=== PATIENT | male | born 2000 | race Caucasian/White ===

== ENCOUNTER 2024-04-16 15:26 | Outpatient (CLI) | payer OTHER, SELFPAY ==
--- OUTSIDE RECORDS SUMMARY | 2024-04-18 07:41 | XMS_ITS | Referral Summary ---
Author Organization [facility] Address [address] [place] [address] Care Team Providers Care Advertising Strategist Name Role Phone Werner Sewell MD Unavailable [phone] Werner Sewell MD Unavailable [phone] Majo Franco RN Unavailable [phone] Unavailable [phone] Lin Babcock PA-C Primary Care Provider Lynn Funes RD Unavailable [phone] Encounters Date Type Department Care Team Description 04/11/2024 Refill [place] [address] [place] [phone] Werner Sewell MD Medication Refill 03/05/2024 MyC Refill [place] [address] [place] [phone] Werner Sewell MD Refill Request 03/02/2024 Refill M [address] [place] [phone] Werner Sewell MD Medication Refill from Last 3 Months Allergies No known active allergies Medications Medication Sig Dispensed Refills Start Date End Date Status CONTOUR NEXT TEST test stripIndications:Typ e 1 diabetes mellitus without complication (H) USE 1 STRIP TO CHECK GLUCOSE 4 TIMES DAILY OR DIRECTED 100 strip 11 05/31/20 23 Active Insulin Glargine-yfgn 100 UNIT/ML SOPNIndications:Type 1 diabetes mellitus without complication (H) INJECT 24 UNITS SUBCUTANEOUSLY AT BEDTIME 15 mL 5 05/31/20 23 Active blood glucose (NO BRAND SPECIFIED) test stripIndications:Typ e 1 diabetes mellitus with microalbuminuria (H) Use to test blood sugar 4 times daily or as directed. 400 strip 3 11/02/19 24 Active insulin aspart (NOVOLOG FLEXPEN RELION) 100 UNIT/ML penIndications:Type 1 diabetes mellitus without complication (H) INJECT 10 TO 24 UNITS SUBCUTANEOUSLY WITH MEALS AND CORRECTION DOSES DIRECTED, TOTAL DAILY DOSE APPROXIMATELY 60 UNITS 15 mL 3 03/05/20 24 Active insulin pen needle (BD PEN NEEDLE LYN 2ND GEN) 32G X 4 MM miscellaneousIndicat ions: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) USE 4 PEN NEEDLES DAILY OR DIRECTED 400 each 3 04/11/20 24 Active insulin pen needle (32G X 4 MM) 32G X 4 MM miscellaneousIndicat ions: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) Use 4 pen needles daily or as directed. 400 each 3 03/10/20 23 024 Discontinued Active Problems Problem Noted Date Diagnosed Date Diabetes mellitus, type 2 08/10/2022 Social History Tobacco Use Types Packs/Day Years Used Date Smoking Tobacco: Never Smokeless Tobacco: Never Tobacco Cessation:Counseling Given: Not Answered Alcohol Use Standard Drinks/Week Comments Never 0 (1 standard drink = 0.6 oz pur e alcohol) PHQ-2 Answer Date Recorded PHQ-2 Score 0 11/02/2023 Adolescent Education Answer Date Record ed Getting School Help Needed Not on file 06/25 Sex and Gender Information Value Date Recorded Sex Assigned at Not on file Gender Identity Not on file Sexual Orientation Not on file Last Filed Vital Signs Vital Sign Reading Time Taken Comments Blood Pressure 118/71 05/20/2022 11:06 AM CDT Pulse 71 05/20/2022 11:06 AM CDT Temperature - - Respiratory Rate - - Oxygen Saturation 98% 05/20/2022 11:06 AM CDT Inhaled Oxygen Concentration - - Weight 72.3 kg (159 lb 6.4 oz) 05/20/2022 11:06 AM CDT Height - - Body Mass Index - - Plan of Treatment Upcoming Encounters Date Type Department Care Team (Late st Contact Info) Description 07/02/2024 2:00 PM CDT Virtual Visit [facility] [place] [address] [facility] [address] 3rd [place] [address] Selma Garcia PA-C [address] [place] [address] [address] [place] [address] Goals Goal Patient Goal Type Associated Problems Recent Progress Patient-Stated? Author Establish Regular Follow-Ups with PCP Care Plan HbA1C Not In Goal Majo Roman RN Get HbA1C Level in Goal Care Plan HbA1C Not In Goal Majo Roman RN Understand diabetes pathophysiology and disease progression Care Plan Diabetes Self-Management Education Needed to Optimize Self-Care Behaviors Majo Roman RN Healthy Eating - follow a healthy eating pattern for diabetes Care Plan Diabetes Self-Management Education Needed to Optimize Self-Care Behaviors Majo Roman RN Being Active - get regular physical activity, working up to at least 150 minutes per week Care Plan Diabetes Self-Management Education Needed to Optimize Self-Care Behaviors Majo Roman RN Monitoring - monitor glucose and ketones as directed Care Plan Diabetes Self-Management Education Needed to Optimize Self-Care Behaviors Majo Roman RN Taking Medication - patient is consistently taking medications as directed Care Plan Diabetes Self-Management Education Needed to Optimize Self-Care Behaviors Maoj Roman RN Problem Solving - know how to prevent and manage short-term diabetes complications Care Plan Diabetes Self-Management Education Needed to Optimize Self-Care Behaviors Majo Roman RN Reducing Risks - know how to prevent and treat long-term diabetes complications Care Plan Diabetes Self-Management Education Needed to Optimize Self-Care Behaviors Majo Roman RN Healthy Coping - use available resources to cope with the challenges of managing diabetes Care Plan Diabetes Self-Management Education Needed to Optimize Self-Care Behaviors No Majo Franco RN Procedures Procedure Name Priority Date/Time Associated Diagnosis Comments ALBUMIN RANDOM URINE QUANTITATIVE Routine 04/26/2023 10:07 AM CDT 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) BASIC METABOLIC PANEL Routine 04/26/2023 9:37 AM CDT 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) HEMOGLOBIN A1C Routine 04/26/2023 9:37 AM CDT 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) EYE EXAM - HIM SCAN 10/13/2020 1 2:00 AM LENS ASSORTER from Last 3 Months or Most Recently Relevant to Health Maintenance Results * (ABNORMAL) Albumin Random Urine Quantitative with Creat Ratio (04/26/2023 10:07 AM CDT) Creatinine Urine mg/dL 79.6 mg/dL 04/26/2023 10:50 PM CDT [facility] Comment:The reference ranges have not been established in urine creatinine. The results should be integrated into the clinical context for interpretation. Albumin Urine mg/L 22.7 mg/L 2022 10:50 PM CDT [facility] Comment:The reference ranges have not been established in urine albumin. The results should be integrated into the clinical context for interpretation. Albumin Urine mg/g Cr 28.52(H) 0.00 - 17.00 mg/g Cr 04/26/2023 10:50 PM CDT [facility] Comment: Microalbuminuria is defined as an albumin:creatinine ratio of 17 to 299 for males and 25 to 299 for females. A ratio of albumin:creatinine of 300 or higher is indicative of overt proteinuria. Due to biologic variability, positive results should be confirmed by a second, first-morning random or 24-hour timed urine specimen. If there is discrepancy, a third specimen is recommended. When 2 out of 3 results are in the microalbuminuria range, this is evidence for incipient nephropathy and warrants increased efforts at glucose control, blood pressure control, and institution of therapy with an lztpooqfvbi-pzhyvvrdxn-ezdbps (DEBBY) inhibitor (if the patient can tolerate it). ?? Urine URINE SPECIMEN / Unknown Non-blood Collection / Unknown 04/26/2023 10:07 AM CDT 04/26/2023 10:07 AM CDT Werner Sewell MD LAB - URINE ORDERABL ES [facility] Core Lab [address] [facility], [address] [place] [address], [facility] [phone] * (ABNORMAL) Hemoglobin A1c (04/26/2023 9:37 AM CDT) Hemoglobin A1C 8.6(H) 0.0 - 5.6 % 04/26/2023 9:45 AM CDT [facility] Comment: Normal <5.7% Prediabetes 5.7-6.4% ?? Diabetes 6.5% or higher Note: Adopted from ADA consensus guidelines. Blood STRUCTURE OF RIGHT UPPER LIMB / Unknown Venipuncture / Unknown 04/26/2023 9:37 AM CDT 04/26/2023 9:37 AM CDT Werner Sewell MD LAB - BLOOD ORDERABL ES [facility] [address], [address] [place] [address], [facility] [phone] * (ABNORMAL) Basic metabolic panel (04/26/2023 9:37 AM CDT) Sodium 146(H) 136 - 145 mmol/L 04/26/2023 10:42 PM CDT [facility] Potassium 4.4 3.4 - 5.3 mmol/L 04/26/2023 10:42 PM CDT [facility] Chloride 107 98 - 107 mmol/L 04/26/2023 10:42 PM CDT [facility] Carbon Dioxide (CO2) 26 22 - 29 mmol/L 04/26/2023 10:42 PM CDT [facility] Anion Gap 13 7 - 15 mmol/L 04/26/2023 10:42 PM CDT [facility] Urea Nitrogen 15.1 6.0 - 20.0 mg/dL 04/26/2023 10:42 PM CDT [facility] Creatinine 0.87 0.67 - 1.17 mg/dL 04/26/2023 10:42 PM CDT [facility] Calcium 9.4 8.6 - 10.0 mg/dL 04/26/2023 10:42 PM CDT [facility] Glucose 296(H) 70 - 99 mg/dL 04/26/2023 10:42 PM CDT [facility] GFR Estimate >90 >60 mL/min/1.7 3m2 04/26/2023 10:42 PM CDT [facility] Blood STRUCTURE OF RIGHT UPPER LIMB / Unknown Venipuncture / Unknown 04/26/2023 9:37 AM CDT 04/26/2023 9:37 AM CDT Werner Sewell MD LAB - BLOOD ORDERABL ES [facility] [place] [facility] [address] [facility], [address] [place] [address], [facility] [phone] * EYE EXAM - HIM SCAN (10/13/2020 12:00 AM LENS ASSORTER) RETINOPATHY SEE SCANNED DOCUMENT 10/13/2020 Narrative Marielena Salinas - 10/13/2020 12:00 AM LENS ASSORTER EYE EXAM OUTSIDE RECORDS Provider Outside OTHER from Last 3 Months or Most Recently Relevant to Health Maintenance Additional Health Concerns Active Problems Noted Date Diagnosed Date HbA1C Not In Goal 08/04/2022 Diabetes Self-Management Edu cation Needed to Optimize Self-Care Behaviors 08/04/2022 Care Teams Advertising Strategist Relationship Specialty Start Date End Date Lin Babcock PA-C [facility] [address] [place], [place] [phone] PCP - General Physician Travel Information Center Supervisor 07/06/23 Werner Sewell MD [address] [place] [address] [place] [address] Endocrinology, Diabetes, and Metabolism 01/13/22 Werner Sewell MD [address] [place] [address] [place] [address] Assigned Endocrinology Provider 05/22/22 Majo Franco RN Splunk Developer Diabetes Education 08/04/[address] [place] [address] Splunk Developer Dietitian, Registered 06/30/[address] [place] [address] Registered Dietitian Nutrition 11/03/23
--- OUTSIDE RECORDS SUMMARY | 2024-04-18 07:41 | XMS_ITS ---
Care Plan Created on: April 18, 2024 Gopal Corrales : 2000 Sex: Male Author Organization [facility] Address [address] [place] [address] Care Team Providers Care Investigator Internal Affairs Name Role Phone Werner Sewell MD Unavailable [phone] Werner Sewell MD Unavailable [phone] Majo Franco RN Unavailable [phone] Unavailable [phone] Lin Babcock PA-C Primary Care Provider Lynn Funes RD Unavailable [phone] Active Problems Problem Noted Date Diagnosed Date Diabetes mellitus, type 2 08/10/2022 Additional Health Concerns Active Problems Noted Date Diagnosed Date HbA1C Not In Goal 08/04/2022 Diabetes Self-Management Edu cation Needed to Optimize Self-Care Behaviors 08/04/2022 Goals Goal Patient Goal Type Associated Problems Recent Progress Patient-Stated? Author Establish Regular Follow-Ups with PCP Care Plan HbA1C Not In Goal No Majo Franco RN Get HbA1C Level in Goal Care Plan HbA1C Not In Goal No Majo Franco RN Understand diabetes pathophysiology and disease progression Care Plan Diabetes Self-Management Education Needed to Optimize Self-Care Behaviors No Majo Franco RN Healthy Eating - follow a healthy eating pattern for diabetes Care Plan Diabetes Self-Management Education Needed to Optimize Self-Care Behaviors No Majo Franco RN Being Active - get regular physical activity, working up to at least 150 minutes per week Care Plan Diabetes Self-Management Education Needed to Optimize Self-Care Behaviors No Majo Franco RN Monitoring - monitor glucose and ketones as directed Care Plan Diabetes Self-Management Education Needed to Optimize Self-Care Behaviors No Frediseyen, Majo A, RN Taking Medication - patient is consistently taking medications as directed Care Plan Diabetes Self-Management Education Needed to Optimize Self-Care Behaviors Majo Roman RN Problem Solving - know how [...] to Optimize Self-Care Behaviors Majo Roman RN Interventions Intervention Entry Date Outcome Provide education on when to seek professional counseling 08/04/2022 Discuss methods for coping with stress 08/04/2022 Provide education on benefits of utilizing support systems 08/04/2022 Provide education on the benefits of making appropriate lifestyle changes 08/04/2022 Discuss recognizing feelings about having diabetes 08/04/2022 Provide education on tobacco cessation 08/04/2022 Provide education on recommendations for heart health - lipid levels and goals, blood pressure and goals, and aspirin therapy, if indicated 08/04/2022 Provide education on Hemoglobin A1c - goals and relationship to blood glucose levels 08/04/2022 Provide education on recommended care for dental, eye and foot health 08/04/2022 Provide education on major complications of diabetes, prevention, early diagnostic measures and treatment of complications 08/04/2022 Provide education on when to call a health care provider 08/04/2022 Provide education on how to care for diabetes on sick days 08/04/2022 Provide education on safe travel with diabetes 08/04/2022 Provide education on high blood glucose - causes, signs/symptoms, prevention and treatment 08/04/2022 Provide education on frequency and refill details of medications 08/04/2022 Discuss barriers to medication adherence with patient and provide management technique ideas as appropriate 08/04/2022 Provide education on insulin and injectable diabetes medications, including administration, storage, site selection and rotation for injection sites 08/04/2022 Provide education on ketone monitoring (when to monitor, frequency, etc.) 08/04/2022 Provide education on blood glucose monitoring (purpose, proper technique, frequency, glucose targets, interpreting results, when to use glucose control solution, sharps disposal) 08/04/2022 Explore community resources including walking groups, assistance programs, and home videos 08/04/2022 Develop physical activity plan with patient 08/04/2022 Discuss barriers to physical activity with patient 08/04/2022 Provide education on relationship of activity to glucose and precautions to take if at risk for low glucose 08/04/2022 Develop individualized healthy eating plan with patient 08/04/2022 Provide education on eating out 08/04/2022 Provide education on heart healthy eating 08/04/2022 Provide education on weight management 08/04/2022 Provide education on managing carbohydrate intake (carbohydrate counting, plate planning method, etc.) 08/04/2022 Provide education on portion control and consistency in amount, composition and timing of food intake 08/04/2022 Discuss diabetes treatment plan with patient 08/04/2022 Refer patient to appropriate extended care production team manager, as needed (Medication Therapy Management, Behavioral Health, Physical Therapy, etc.) 08/04/2022 Educate patient on benefits of regular glucose monitoring 08/04/2022 Educate patient on diabetes education self-management topics 08/04/2022 Discuss schedule for PCP visits with patient 08/04/2022 Discuss with PCP the recommended timing for patient's next follow up visit(s) 08/04/2022 Related Goals and Interventions Goal Associated Intervent ions Establish Regular Follow-Ups with PCP Fani chung schedule for PCP visits with patient; Discuss with PCP the recommended timing for patient's next follow up visit(s) Get HbA1C Level in Goal Discuss diabetes treatment plan with patient; Refer patient to appropriate extended care production team manager, as needed (Medication Therapy Management, Behavioral Health, Physical Therapy, etc.); Educate patient on benefits of regular glucose monitoring; Educate patient on diabetes education self-management topics Healthy Eating - follow a he althy eating pattern for diabetes Develop individualized healthy eating pl an with patient; Provide education on eating out; Provide education on heart healthy eating; Provide education on weight management; Provide education on managing carbohydrate intake (carbohydrate counting, plate planning method, etc.); Provide education on portion control and consistency in amount, composition and timing of food intake Being Active - get regular p hysical activity, working up to at least 150 minutes per week Explore community resources including walking groups, assistance programs, and home videos; Develop physical activity plan with patient; Discuss barriers to physical activity with patient; Provide education on relationship of activity to glucose and precautions to take if at risk for low glucose Monitoring - monitor glucose and ketones as directed Provide education on ketone monitoring (when to monitor, frequency, etc.); Provide education on blood glucose monitoring (purpose, proper technique, frequency, glucose targets, interpreting results, when to use glucose control solution, sharps disposal) Taking Medication - patient is consistently taking medications as directed Provide education on frequency and refil l details of medications; Discuss barriers to medication adherence with patient and provide management technique ideas as appropriate; Provide education on insulin and injectable diabetes medications, including administration, storage, site selection and rotation for injection sites Problem Solving - know how t o prevent and manage short-term diabetes complications Provide education on when to call a health care provider; Provide education on how to care for diabetes on sick days; Provide education on safe travel with diabetes; Provide education on high blood glucose - causes, signs/symptoms, prevention and treatment Reducing Risks - know how to prevent and treat long-term diabetes complications Provide education on tobacco cessation; Provide education on recommendations for heart health - lipid levels and goals, blood pressure and goals, and aspirin therapy, if indicated; Provide education on Hemoglobin A1c - goals and relationship to blood glucose levels; Provide education on recommended care for dental, eye and foot health; Provide education on major complications of diabetes, prevention, early diagnostic measures and treatment of complications Healthy Coping - use availab le resources to cope with the challenges of managing diabetes Provide education on when to seek professional counseling; Discuss methods for coping with stress; Provide education on benefits of utilizing support systems; Provide education on the benefits of making appropriate lifestyle changes; Discuss recognizing feelings about having diabetes
--- OUTSIDE RECORDS SUMMARY | 2024-04-18 07:41 | XMS_ITS | Clinical Summary ---
Author Organization [facility] Address [address] [place] [address] Care Team Providers Care Channel Program Manager Name Role Phone Werner Sewell MD Unavailable [phone] Werner Sewell MD Unavailable [phone] Majo Franco RN Unavailable [phone] Unavailable [phone] Lin Babcock PA-C Primary Care Provider Lynn Funes RD Unavailable [phone] Allergies No known active allergies Medications Medication [...] Diagnosed Date Diabetes mellitus, type 2 08/10/2022 Encounters Date Type Department Care Team Description 04/11/2024 Refill [place] [address] [place] [phone] Werner Sewell MD Medication Refill 03/05/2024 MyC Refill [address] [place] [phone] Werner Sewell MD Refill Request 03/02/[address] [place] [phone] Werner Sewell MD Medication Refill from Last 3 Months Social History Tobacco Use Types Packs/Day Years [...] Description 07/02/2024 2:00 PM CDT Virtual Visit [facility] [place] [address] [facility] [address] 3rd [place] [address] Selma Garcia PA-C [address] [facility] [address] [place] [address] Health Maintenance Due Date Last Done Comments ADVANCE CARE PLANNING 2000 ANNUAL REVIEW OF HM ORDERS 2000 DIABETIC FOOT EXAM 2000 LIPID 2000 YEARLY PREVENTIVE VISIT 2000 IPV IMMUNIZATION (2 of 3 - 4-dose series) 06/11/2005 05/14/2005 Pneumococcal Vaccine: Pediatrics (0 to 5 Years) and At-Risk Patients (6 to 64 Years) (1 of 2 - PCV) 2006 DTAP/TDAP/TD IMMUNIZATION (3 - Td or Tdap) 11/30/2012 05/31/2012, 05/14/2005 HIV SCREENING 2015 HPV IMMUNIZATION (2 - Male 3-dose series) 03/08/2017 02/08/2017 HEPATITIS C SCREENING 2018 HEPATITIS B IMMUNIZATION (1 of 3 - 19+ 3-dose series) 2019 EYE EXAM 10/13/2021 10/13/2020 COVID-19 Vaccine ( - 2022- season) 2023 A1C 07/27/2023 04/26/2023, 05/20/2022 BMP 04/26/2024 04/26/2023, 05/20/2022 MICROALBUMIN 04/26/2024 04/26/2023, 05/20/2022 INFLUENZA VACCINE (#1) 2024 0, 08/20/2009, 08/19/2005, Additional history exists MENINGITIS IMMUNIZATION Completed 02/08/2017, 05/31 PHQ-2 (once per calendar year) Completed 11/02/2023, 04/28/2023 RSV MONOCLONAL ANTIBODY Aged Out No l onger eligible based on patient's age to complete this topic Goals Goal Patient Goal Type Associated Problems Recent Progress Patient-Stated? Author Establish Regular Follow-Ups with PCP Care Plan HbA1C Not In Goal No Majo Franco RN Get HbA1C Level in Goal Care Plan HbA1C Not In Goal No Majo Franco A, RN Understand diabetes pathophysiology and disease progression [...] - HIM SCAN 10/13/2020 1 2:00 AM COIL CUTTER from Last 3 Months or Most Recently [...] control, and institution of therapy with an qmlsmhxhmhq-vxojjkviax-vrxaoa (DEBBY) inhibitor (if the patient can tolerate it). ?? Urine URINE SPECIMEN / Unknown Non-blood Collection / Unknown 04/26/2023 10:07 AM CDT 04/26/2023 10:07 AM CDT Werner Sewell MD LAB - URINE ORDERABL ES [facility] Core Lab [address] [facility], [address] [place] [address], [facility] [phone] * (ABNORMAL) Hemoglobin A1c (04/26/2023 9:37 AM [...] Sewell MD LAB - BLOOD ORDERABL ES [facility] [address], [address] [place] [address], [facility] [phone] * (ABNORMAL) Basic metabolic panel (04/26/2023 9:37 [...] LAB - BLOOD ORDERABL ES [facility] [place] [facility] Lab [address] [facility], [address] [place] [address], [facility] [phone] * EYE EXAM - HIM SCAN (10/13/2020 12:00 AM COIL CUTTER) RETINOPATHY SEE SCANNED DOCUMENT 10/13/2020 Narrative Marielena Salinas - 10/13/2020 12:00 AM COIL CUTTER EYE EXAM OUTSIDE RECORDS Provider Outside OTHER from Last 3 Months or Most Recently Relevant to Health Maintenance Additional Health Concerns Active Problems Noted Date Diagnosed Date HbA1C Not In Goal 08/04/2022 Diabetes Self-Management Edu cation Needed to Optimize Self-Care Behaviors 08/04/2022 Care Teams Channel Program Manager Relationship Specialty Start Date End Date Lin Babcock PA-C [facility] [address] [place], [place] [phone] PCP - General Physician Military Technology Specialist 07/06/23 Werner Sewell MD [address] [place] [phone] Endocrinology, Diabetes, and Metabolism 01/13/22 Werner Sewell MD [address] [place] [phone] Assigned Endocrinology Provider 05/22/22 Majo Franco RN [facility] Diabetes Education 08/04/[address] [place] [address] [facility] Dietitian, Registered 06/30/[address] [facility] [place] [address] Registered Dietitian Nutrition 11/03/23
--- OUTSIDE RECORDS SUMMARY | 2024-04-18 07:42 | XMS_ITS | Encounter Summary ---
Author Organization [facility] Address [address] [place] [address]. [place] [address] Care Team Providers Care Pick Up Truck Driver Name Role Phone Werner Sewell MD Unavailable [phone] Werner Sewell MD Unavailable [phone] Majo Franco RN Unavailable [phone] Unavailable [phone] Lin Babcock PA-C Primary Care Provider Lynn Funes RD Unavailable [phone] Reason for Visit * Reason Comments Medication Refill Encounter Details Date Type Department Care Team (Late st Contact Info) Description 04/11/2024 [facility]ly [facility] [address] [place] [address] Werner Sewell MD [address] [facility] [address] [place] [address] Medication Refill Social History Tobacco Use Types Packs/Day Years Used Date Smoking Tobacco: Never Smokeless Tobacco: Never Alcohol Use Standard Drinks/Week Comments Never 0 (1 standard drink = 0.6 oz pur e alcohol) PHQ-2 Answer Date Recorded PHQ-2 Score 0 11/02/2023 Adolescent Education Answer Date Record ed Getting School Help Needed Not on file 06/25 Sex and Gender Information Value Date Recorded Sex Assigned at Not on file Gender Identity Not on file Sexual Orientation Not on file documented as of this encounter Miscellaneous Notes * Telephone Encounter - Amanda Hall RN - 04/11/2024 3:50 PM CDT Last Written Prescription Date: 03/10/23 Last Fill Quantity: 400, # refills: 3 Last office visit: 05/20/2022 ; last virtual visit: 11/02/2023 with prescribing provider: Dr. Sewell Future Office Visit: 07/02/24 Requested Prescriptions Pending Prescriptions Disp Refills BD PEN NEEDLE LYN 2ND GEN 32G X 4 MM miscellaneous [Pharmacy Med Name: BD PEN NEEDLE/LYN [id number] MIS] 0 Sig: USE 4 PEN NEEDLES DAILY OR DIRECTED Diabetic Supplies Protocol Passed - 04/11/2024 1:40 PM Passed - Medication is active on med list Passed - Recent (12 month) or future (90 days) visit with authorizing provider???s specialty The patient must have completed an in-person or virtual visit within the past 12 months or has a future visit scheduled within the next 90 days with the authorizing provider???s specialty. Urgent care and e-visits do not quality as an office visit for this protocol. Passed - Medication indicated for associated diagnosis Passed - Patient is 18 years of age or older Refills sent Amanda Hall RN documented in this encounter Plan of Treatment Upcoming Encounters Date Type Department Care Team (Late st Contact Info) Description 07/02/2024 2:00 PM CDT Virtual Visit [facility] [address] 3rd [place] [address] Selma Garcia PA-C [address] [place] [address] documented as of this encounter Goals Goal Patient Goal Type Associated Problems [...] Optimize Self-Care Behaviors No Majo Franco RN documented as of this encounter Visit Diagnoses Diagnosis 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) documented in this encounter Additional Health Concerns Active Problems Noted Date Diagnosed Date HbA1C Not In Goal 08/04/2022 Diabetes Self-Management Edu cation Needed to Optimize Self-Care Behaviors 08/04/2022 documented as of this encounter Care Teams Pick Up Truck Driver Relationship Specialty Start Date End Date Lin Babcock PA-C [facility] [address], [place] [address] PCP - General Physician Broach Setter 07/06/23 Werner Sewell MD [address] [place], [place] [address] Endocrinology, Diabetes, and Metabolism 01/13/22 Werner Sewell MD [address] [place], [place] [address] Assigned Endocrinology Provider 05/22/22 Majo Franco RN Administrator Of Home Health Diabetes Education 08/04/[address] [place] [address] Administrator Of Home Health Dietitian, Registered 06/30/[address] [place] [address] Registered Dietitian Nutrition 11/03/23 documented as of this encounter
--- OUTSIDE RECORDS SUMMARY | 2024-04-18 07:42 | XMS_ITS | Encounter Summary ---
Author Organization [facility] Address [address] [place] [address]. [place] [address] Care Team Providers Care Lead Application Architect Name Role Phone [facility] Primary Care Prov ider Werner Sewell MD Unavailable [phone] Werner Sewell MD Unavailable [phone] Majo Franco RN Unavailable [phone] Unavailable [phone] Lin Babcock PA-C Primary Care Provider Lynn Funes RD Unavailable [phone] Encounter Details Date Type Department Care Team (Late st Contact Info) Description 05/03/2023 MyC Medical Luda [facility] Specialty [address] [place] [address] Werner Sewell MD [address] [address] Social History Tobacco Use Types Packs/Day Years Used Date Smoking Tobacco: Never Smokeless Tobacco: Never Alcohol Use Standard Drinks/Week Comments Never 0 (1 standard drink = 0.6 oz pur e alcohol) PHQ-2 Answer Date Recorded PHQ-2 Score 0 04/28/2023 Sex and Gender Information Value Date Recorded Sex Assigned at Not on file Gender Identity Not on file Sexual Orientation Not on file COVID-19 Exposure Response Date Recorded In the last 10 days, have yo u been in contact with someone who was confirmed or suspected to have Coronavirus/COVID-19? No / Unsure 04/26/2023 9:33 AM CDT documented as of this encounter Plan of Treatment Upcoming Encounters Date Type Department Care Team (Late st Contact Info) Description 07/02/2024 2:00 PM CDT Virtual Visit [facility] [address] 3rd [place] [address] Selma Garcia PA-C [address] [facility] [address] [place], [place] [address] documented as of this encounter Goals Goal [...] documented as of this encounter Visit Diagnoses Not on filedocumented in this encounter Additional Health Concerns Active Problems Noted Date Diagnosed Date HbA1C Not In Goal 08/04/2022 Diabetes Self-Management Edu cation Needed to Optimize Self-Care Behaviors 08/04/2022 documented as of this encounter Care Teams Lead Application Architect Relationship Specialty Start Date End Date [facility] [address] [facility] [address] [place] [address] PCP - General 01/13/22 07/05/23 Lin Babcock PA-C [facility] [address] [place] [address] PCP - General Physician Outdoor Adventure Instructor 07/06/23 Werner Sewell MD [address] [place] [address] Endocrinology, Diabetes, and Metabolism 01/13/22 Werner Sewell MD [address] [place] [address] Assigned Endocrinology Provider 05/22/22 Majo Franco RN Rotary Planer Set Up Operator Diabetes Education 08/04/[address] [place] [address] Rotary Planer Set Up Operator Dietitian, Registered 06/30/[address] [place] [address] Registered Dietitian Nutrition 11/03/23 documented as of this encounter
--- OUTSIDE RECORDS SUMMARY | 2024-04-18 07:42 | XMS_ITS | Encounter Summary ---
Author Organization [place] Address [address] [place] [address]. [place] [address] Care Team Providers Care Pocket Grinder Operator Name Role Phone [facility] Primary Care Prov ider Werner Sewell MD Unavailable [phone] Werner Sewell MD Unavailable [phone] Majo Franco RN Unavailable [phone] Unavailable [phone] Lin Babcock PA-C Primary Care Provider Lynn Funes RD Unavailable [phone] Reason for Visit * Reason Onset Date Comments Forms 04/19/2023 DMV form, issues Encounter Details Date Type Department Care Team (Late st Contact Info) Description 04/19/2023 [facility] Medical Advice [address] [address] Werner Sewell MD [address] [address] Forms (DMV form, issues) Social History Tobacco Use Types Packs/Day Years Used Date Smoking Tobacco: Never Smokeless Tobacco: Never Alcohol Use Standard Drinks/Week Comments Never 0 (1 standard drink = 0.6 oz pur e alcohol) Sex and Gender Information Value Date Recorded Sex Assigned at Not on file Gender Identity Not on file Sexual Orientation Not on file documented as of this encounter Plan of Treatment Upcoming Encounters Date Type Department Care Team (Late st Contact Info) Description 07/02/2024 2:00 PM CDT Virtual Visit [facility] Endocrinology Clinic [address] 3rd [place] [address] Selma Garcia PA-C [address] [place] [address] 101 [place] [address] documented as of this encounter Goals Goal [...] documented as of this encounter Care Teams Pocket Grinder Operator Relationship Specialty Start Date End Date [facility] [address] [facility] [address] [place] [address] PCP - General 01/13/22 07/05/23 Lin Babcock PA-C [facility] [address] [place] [address] PCP - General Physician Automatic Buffing Wheel Former 07/06/23 Werner Sewell MD [address] [place] [address] Endocrinology, Diabetes, and Metabolism 01/13/22 Werner Sewell MD [address] [place] [address] Assigned Endocrinology Provider 05/22/22 Majo Franco RN Documentation Specialist Diabetes Education 08/04/[address] [place] [address] Documentation Specialist Dietitian, Registered 06/30/[address] [place] [address] Registered Dietitian Nutrition 11/03/23 documented as of this encounter
--- OUTSIDE RECORDS SUMMARY | 2024-04-18 07:42 | XMS_ITS | Encounter Summary ---
Author Organization [facility] Address [address] [place] [address]. [place] [address] Care Team Providers Care Pattern Maker Programer Name Role Phone [facility] Primary Care Prov ider Werner Sewell MD Unavailable [phone] Werner Sewell MD Unavailable [phone] Majo Franco RN Unavailable [phone] Unavailable [phone] Lin Babcock PA-C Primary Care Provider Lynn Funes RD Unavailable [phone] Reason for Visit * Reason Onset Date Comments Diabetes 05/02/2023 Dexcom G6 & Omni pod 5 Encounter Details Date Type Department Care Team (Late st Contact Info) Description 05/02/2023 [facility] Specialty [address] [place] [address] Werner Sewell MD [address] [facility] 200 [place] [address] Diabetes (Dexcom G6 & Omnipod 5) Social History Tobacco Use Types Packs/Day Years [...] Recorded In the last 10 days, have camille espinosa been in contact with someone who was confirmed or suspected to have Coronavirus/COVID-19? No / Unsure 04/26/2023 9:33 AM CDT documented as of this encounter Miscellaneous Notes * Telephone Encounter - Lexx Islasdonna - 05/02/2023 11:56 AM CDT Hello! This message is to notify you that the Diabetes Care Services team has completed their benefit check for this patient's Dexcm G6 & Omnipod 5. We will notify the patient of their approval. If you have any questions, please let us know! Thank you! Diabetes Care Services Team [facility] [address] [place] [address] Fax; [phone] documented in this encounter Plan of Treatment Upcoming Encounters Date Type Department Care Team (Late st Contact Info) Description 07/02/2024 2:00 PM CDT Virtual Visit [facility] End[facility]ology Clinic [address] 3rd [place] [address] Selma Garcia PA-C [address] [place] [address] [address] [place] [address] documented as of this encounter Goals Goal [...] documented as of this encounter Care Teams Pattern Maker Programer Relationship Specialty Start Date End Date [address] [address] PCP - General 01/13/22 07/05/23 Lin Babcock PA-C [facility] [address] [place] [address] PCP - General Physician Weight Training Instructor 07/06/23 Werner Sewell MD [address] [place] [id number] Endocrinology, Diabetes, and Metabolism 01/13/22 Werner Sewell MD [address] [place] [address] Assigned Endocrinology Provider 8/20/22 Majo Franco RN Hazardous Materials Handler Diabetes Education 08/04/[address] [place] [address] Hazardous Materials Handler Dietitian, Registered 06/30/[address] [facility] [place] [address] Registered Dietitian Nutrition 11/03/23 documented as of this encounter
--- OUTSIDE RECORDS SUMMARY | 2024-04-18 07:42 | XMS_ITS | Encounter Summary ---
Author Organization [facility] Address [address] [place] [address]. [place] [address] Care Team Providers Care Card Painter Name Role Phone [facility] Primary Care Prov ider Werner Sewell MD Unavailable [phone] Werner Sewell MD Unavailable [phone] Majo Franco RN Unavailable [phone] Unavailable [phone] Lin Babcock PA-C Primary Care Provider Lynn Funes RD Unavailable [phone] Encounter Details Date Type Department Care Team (Late st Contact Info) Description 07/01/2023 MyC Medical Advice [facility] [address] [facility] [place] [place] [address] Jayla Arechiga, RD [address] [place] [address] Social History Tobacco Use Types Packs/Day Years Used Date Smoking Tobacco: Never Smokeless Tobacco: Never Alcohol Use Standard Drinks/Week Comments Never 0 (1 standard drink = 0.6 oz pur e alcohol) PHQ-2 Answer Date Recorded PHQ-2 Score 0 04/28/2023 Adolescent Education Answer Date Record ed Getting School Help Needed Not on file 06/25 Sex and Gender Information Value Date Recorded Sex Assigned at Not on file Gender Identity Not on file Sexual Orientation Not on file documented as of this encounter Plan of Treatment Upcoming Encounters Date Type Department Care Team (Late st Contact Info) Description 07/02/2024 2:00 PM CDT Virtual Visit [facility]inology [facility] [place] [id number] [facility] 3rd [place] [address] Selma Garcia PA-C [address] [place] [address] 101 [place] [address] documented as of this encounter Goals Goal [...] documented as of this encounter Care Teams Card Painter Relationship Specialty Start Date End Date [facility] [address] [facility] [address] [place] [address] PCP - General 01/13/22 07/05/23 Lin Babcock PA-C [facility] [address] [place] [address] PCP - General Physician Safety Coordinator 07/06/23 Werner Sewell MD [address] [place] [address] [place] [address] Endocrinology, Diabetes, and Metabolism 01/13/22 Werner Sewell MD [address] [place] [address] [place] [address] Assigned Endocrinology Provider 05/22/22 Majo Franco RN Environmental Aide Diabetes Education 08/04/[address] [place] [address] Environmental Aide Dietitian, Registered 06/30/[address] [place] [address] Registered Dietitian Nutrition 11/03/23 documented as of this encounter
--- OUTSIDE RECORDS SUMMARY | 2024-04-18 07:42 | XMS_ITS | Encounter Summary ---
Author Organization [place] Address [address] [place] [address] Care Team Providers Care Furnace Room Supervisor Name Role Phone Werner Sewell MD Unavailable [phone] Werner Sewell MD Unavailable [phone] Majo Franco RN Unavailable [phone] Unavailable [phone] Lin Babcock PA-C Primary Care Provider Lynn Funes RD Unavailable [phone] Encounter Details Date Type Department Care Team (Late st Contact Info) Description 12/01/2023 MyC Medical Advice [facility] [address] [facility] [address] [place] [address] [place] [address] Social History Tobacco Use Types Packs/Day Years [...] Description 07/02/2024 2:00 PM CDT Virtual Visit [facility]inology [facility] [place] [address] [facility] [address] 3rd [place] [address] Selma Garcia PA-C [address] [place] [address] 101 [place] [address] documented as of this encounter Goals Goal [...] documented as of this encounter Care Teams Furnace Room Supervisor Relationship Specialty Start Date End Date Lin Babcock PA-C [facility] [address] [place] [address] PCP - General Physician Green Coffee Blender 07/06/23 Werner Sewell MD [address] [place] [address] Endocrinology, Diabetes, and Metabolism 01/13/22 Werner Sewell MD [address] [place] [address] Assigned Endocrinology Provider 05/22/22 Majo Franco RN Assembler Cards And Announcements Diabetes Education 08/04/[address] [place] [address] Assembler Cards And Announcements Dietitian, Registered 06/30/[address] [place] [address] Registered Dietitian Nutrition 11/03/23 documented as of this encounter
--- OUTSIDE RECORDS SUMMARY | 2024-04-18 07:42 | XMS_ITS | Encounter Summary ---
Author Organization [facility] Address [address] [place] [address] Care Team Providers Care Grooming Assistant Name Role Phone Werner Sewell MD Unavailable [phone] Werner Sewell MD Unavailable [phone] Majo Franco RN Unavailable [phone] Unavailable [phone] Lin Babcock PA-C Primary Care Provider Lynn Funes RD Unavailable [phone] Encounter Details Date Type Department Care Team (Late st Contact Info) Description 11/22/2023 MyC Medical Advice [facility] [address] [facility] [address] [place] [address] [place] [address] Social History Tobacco Use Types [...] Description 07/02/2024 2:00 PM CDT Virtual Visit [facility]ocrinology [facility] [place] [address] [facility] [address] 3rd [place] [address] Selma Garcia PA-C [address] [place] [address] [address] [place] [address] documented as of this encounter Goals Goal [...] documented as of this encounter Care Teams Grooming Assistant Relationship Specialty Start Date End Date Lin Babcock PA-C [facility] [address] [place] [address] PCP - General Physician Process Trainer 07/06/23 Werner Sewell MD [address] [place] [address] Endocrinology, Diabetes, and Metabolism 01/13/22 Werner Sewell MD [address] [place] [address] Assigned Endocrinology Provider 05/22/22 Majo Franco RN Boiler Or Engine Operator Diabetes Education 08/04/[address] [place] [address] Boiler Or Engine Operator Dietitian, Registered 06/30/[address] [place] [address] Registered Dietitian Nutrition 11/03/23 documented as of this encounter
--- OUTSIDE RECORDS SUMMARY | 2024-04-18 07:42 | XMS_ITS | Encounter Summary ---
Author Organization [place] Address [address] [place] [address]. [place] [address] Care Team Providers Care Cartographic Aide Name Role Phone Werner Sewell MD Unavailable [phone] Werner Sewell MD Unavailable [phone] Majo Franco RN Unavailable [phone] Unavailable [phone] Lin Babcock PA-C Primary Care Provider Lynn Funes RD Unavailable [phone] Reason for Visit * Reason Onset Date Comments Refill Request 03/05/2024 Encounter Details Date Type Department Care Team (Late st Contact Info) Description 03/05/2024 MyC Refill [facility] [address] [place] [address] Werner Sewell MD [address] [address] Refill Request Social History Tobacco Use Types Packs/Day Years [...] Telephone Encounter - Amanda Hall RN - 03/06/2024 10:44 AM CDT Duplicate refill request- refill was sent 03/05/24. Amanda Hall RN documented in this encounter Plan of Treatment Upcoming Encounters Date Type Department Care Team (Late st Contact Info) Description 07/02/2024 2:00 PM CDT Virtual Visit [facility]ology [facility] [address] 3rd [place] [address] Selma Garcia PA-C [address] [place] [address] 101 [place] [address] documented as of this encounter Goals Goal [...] Visit Diagnoses Diagnosis Type 1 diabetes mellitus without complication (H) Type I (juvenile type) diabetes mellitus without mention of complication, not stated as uncontrolled documented in this encounter Additional Health Concerns Active Problems Noted Date Diagnosed Date HbA1C Not In Goal 08/04/2022 Diabetes Self-Management Edu cation Needed to Optimize Self-Care Behaviors 08/04/2022 documented as of this encounter Care Teams Cartographic Aide Relationship Specialty Start Date End Date Lin Babcock PA-C [facility] [address] [place] [address] PCP - General Physician Cross Tie Maker 07/06/23 Werner Sewell MD [address] [place] [address] Endocrinology, Diabetes, and Metabolism 01/13/22 Werner Sewell MD [address] [place] [address] Assigned Endocrinology Provider 05/22/22 Majo Franco RN Washtub Worker Helper Diabetes Education 08/04/[address] [place] [address] Washtub Worker Helper Dietitian, Registered 06/30/[address] [place] [address] Registered Dietitian Nutrition 11/03/23 documented as of this encounter
--- OUTSIDE RECORDS SUMMARY | 2024-04-18 07:42 | XMS_ITS | Encounter Summary ---
Author Organization [facility] Address [address] [place] [address]. [place] [address] Care Team Providers Care Printing Press Operator Name Role Phone Werner Sewell MD Unavailable [phone] Werner Sewell MD Unavailable [phone] aMjo Franco RN Unavailable [phone] Unavailable [phone] Lin Babcock PA-C Primary Care Provider Lynn Funes RD Unavailable [phone] Reason for Visit * Reason Comments Medication Refill Encounter Details Date Type Department Care Team (Late st Contact Info) Description 03/02/2024 [facility] [address] [place] [address] Werner Sewell MD [address] [facility] [address] [place] [address] Medication Refill Social History Tobacco [...] Telephone Encounter - Amanda Hall RN - 03/05/2024 10:56 AM CDT Last Written Prescription Date: 11/10/23 Last Fill Quantity: 15, # refills: 3 Last office visit: 11/02/2023 with prescribing provider: Dr. Sewell Future Office Visit: 07/02/24 with PA Requested Prescriptions Pending Prescriptions Disp Refills NOVOLOG FLEXPEN RELION 100 UNIT/ML pen [Pharmacy Med Name: NovoLOG FlexPen ReliOn 100 UNIT/ML Subcutaneous Solution Pen-injector] 15 mL 0 Sig: INJECT 10 TO 24 UNITS SUBCUTANEOUSLY WITH MEALS AND CORRECTION DOSES DIRECTED, TOTAL DAILY DOSE APPROXIMATELY 60 UNITS Insulin Protocol Failed - 03/02/2024 7:10 PM Failed - Chart Review Required Review Chart. Do not approve if insulin is used in a pump. Instead, direct refill request to the patient's a r specialist. If the patient doesn't have an a r specialist, then send the refill to the patient's PCPfor review Passed - Medication is active on med list Passed - Has GFR on file in past 12 months and most recent value is normal Passed - Recent (6 mo) or future (90 days) visit within the authorizing provider's specialty The patient must have completed an in-person or virtual visit within the past 6 months or has a future visit scheduled within the next 90 days with the authorizing provider???s specialty. Urgent careand e-visits do not quality as an office visit for this protocol. Passed - Medication indicated for associated diagnosis Medication is associated with one or more of the following diagnoses: - Type 1 diabetes mellitus - Type 2 diabetes mellitus - Diabetic nephropathy; Prophylaxis - Neuropathy due to diabetes mellitus; Prophylaxis - Retinopathy due to diabetes mellitus; Prophylaxis - Diabetes mellitus associated with cystic fibrosis - Disorder of cardiovascular system; Prophylaxis - Type 1 diabetes mellitus - Disorder of cardiovascular system; Prophylaxis - Type 2 diabetes mellitus Passed - Patient is 18 years of age or older Refills sent Amanda Hall RN documented in this encounter Plan of Treatment Upcoming Encounters Date Type Department Care Team (Late st Contact Info) Description 07/02/2024 2:00 PM CDT Virtual Visit [facility] [address] [place] [address] Selma Garcia PA-C [address] [facility] [address] [place] [address] documented as of this encounter Goals Goal [...] documented as of this encounter Care Teams Printing Press Operator Relationship Specialty Start Date End Date Lin Babcock PA-C [facility] [address] [place] [address] PCP - General Physician Receivable Clerk 07/06/23 Werner Sewell MD [address] [place] [place] [address] Endocrinology, Diabetes, and Metabolism 01/13/22 Werner Sewell MD [address] [place] [address] [place] [address] Assigned Endocrinology Provider 05/22/22 Majo Franco RN Safety Aide Diabetes Education 08/04/[address] [place] [address] Safety Aide Dietitian, Registered 06/30/[address] [place] [address] Registered Dietitian Nutrition 11/03/23 documented as of this encounter
--- OUTSIDE RECORDS SUMMARY | 2024-04-18 07:42 | XMS_ITS ---
Author Organization [facility] Address [address] [place] [address] Care Team Providers Care Flat Bed Knitter Name Role Phone Werner Sewell MD Unavailable [phone] Werner Sewell MD Unavailable [phone] Majo Franco RN Unavailable Jayla Arechiga RD Unavailable [phone] Lin Babcock PA-C Primary Care Provider Lynn Funes RD Unavailable Diabetes Self-Management Education Status:Enrolled (Active) Start date:07/20/2022 Enrollment date:08/04/2022 Current support & services provided:Type 1 Diabetes Management, Individual Education Case Team Name Relationship Phone Majo Franco RNfarm planner(Responsible Staff) [phone] Business System Manager [phone] Continued Care and Services Coordination
--- OUTSIDE RECORDS SUMMARY | 2024-04-18 07:42 | XMS_ITS | Encounter Summary ---
Author Organization [facility] Address [address] [place] [address]. [place] [address] Care Team Providers Care Lifter Driver Name Role Phone [facility] Primary Care Prov ider Werner Sewell MD Unavailable [phone] Werner Sewell MD Unavailable [phone] Majo Franco RN Unavailable [phone] Unavailable [phone] Lin Babcock PA-C Primary Care Provider Lynn Funes RD Unavailable [phone] Encounter Details Date Type Department Care Team (Late st Contact Info) Description 05/16/2023 [facility] Luda Puckett [facility] [address] [facility] [address] [place] [phone] Ximena Weeks, RD [facility] [address] [place] [address] Social History Tobacco Use Types [...] CDT Virtual Visit [facility] [address] [place] [address] Selma Garcia PA-C [address] [facility] [address] [place] [address] documented as of this encounter Goals Goal [...] Optimize Self-Care Behaviors No Majo Franco RN Problem Solving - know how to [...] documented as of this encounter Care Teams Lifter Driver Relationship Specialty Start Date End Date [facility] [address] [facility] [address] [place] [address] PCP - General 01/13/22 07/05/23 Lin Babcock PA-C [facility] [address] [place] [address] PCP - General Physician Tractor Driver 07/06/23 Werner Sewell MD [address] [place] [address] [place] [address] Endocrinology, Diabetes, and Metabolism 01/13/22 Werner Sewell MD [address] [place] [address] [place] [address] Assigned Endocrinology Provider 05/22/22 Majo Franco RN Photogrammetric Compilation Specialist Diabetes Education 08/04/[address] [place] [address] Photogrammetric Compilation Specialist Dietitian, Registered 06/30/[address] [place] [address] Registered Dietitian Nutrition 11/03/23 documented as of this encounter
== END 2024-04-16 15:27 | disposition home or self-care (01) ==
LOC: NFLDREF 04-18 07:40
PROVIDERS: PCP Family Medicine; Visit Provider Family Medicine
DX: E10.9 Type 1 diabetes mellitus without complications (principal); E11.9 Type 2 diabetes mellitus without complications
CPT/HCPCS: 80061; 82043; 82570

== ENCOUNTER 2025-07-19 08:38 | Outpatient (CLI) | payer OTHER, SELFPAY | END 2025-07-19 08:39 | disposition home or self-care (01) | PROVIDERS: PCP Family Medicine; Visit Provider Family Medicine | DX: Z00.00 Encounter for general adult medical examination without abnormal findings (principal); E10.9 Type 1 diabetes mellitus without complications | CPT/HCPCS: 80053; 82306; 86337 ==